=== PATIENT | female | born 1975 | race Caucasian/White ===

== ENCOUNTER 2019-04-05 21:25 | Emergency (ER) | payer MEDICAID ==
[~2019-04-05] VITALS: Ht 165.1 cm; Wt 127.0 kg
[~2019-04-05 21:25] MED LIST: HYDR1TAB PO; MOT200T PO; NO HOME MEDS
[2019-04-05 22:12] LABS: COLOR,URINE YELLOW (Yellow); GLUCOSE, URINE NEGATIVE (Neg); KETONES,URINE NEGATIVE (Neg); LEUKOCYTE ESTERASE ,URINE MODERATE (Neg); NITRITES, URINE NEGATIVE (Neg); OCCULT BLOOD,URINE TRACE-INTACT (Neg); PH,URINE 6.5 (4.8-8.0); PROTEIN,URINE NEGATIVE (Neg); UROBILINOGEN,URINE 0.2 E.U/dL (0.2-1.0)
[2019-04-05 22:18] LABS: CLARITY,URINE SLIGHTLY CLOUDY (Clear); UA COLLECTION TYPE CLN CATCH MIDSTREAM
[2019-04-05 22:22] LABS: BACTERIA,URINE 1+ /HPF (Neg); MUCUS STRANDS FEW /LPF (Neg); RBC,URINE 0-2 /HPF (0-2); SQUAMOUS EPITHELIAL CELL,UR MODERATE /LPF (FEW); WBC CLUMPS,URINE FEW /HPF (NEGATIVE); WBC,URINE 20-30 /HPF (0-4)
[2019-04-05] MEDS ORDERED: PHEN-716 PO (22:22)
[2019-04-05] MEDS ORDERED: NITR100C6 PO (22:22)
[2019-04-05 22:34] VITALS: BP 134/75
== END 2019-04-05 22:35 | disposition home or self-care (01) ==
LOC: ER 21:25
DX: N39.0 Urinary tract infection, site not specified (principal); Z98.890 Other specified postprocedural states
CPT/HCPCS: 81001; 87088; 99283

== ENCOUNTER 2019-05-05 07:17 | Inpatient (IN) | payer MEDICAID ==
[~2019-05-05] VITALS: Ht 165.1 cm; Wt 126.9 kg
[~2019-05-05 07:17] MED LIST changes: +NITR100C6 PO; +PHEN-716 PO
--- NOTE | 2019-05-05 07:35 | NUR ---
PT ROOMED TO BED 03, DR CABRAL AND PRIMARY NURSE MARISA NOTIFIED OF PT TACHYPNEA, TACHYCARDIA, AND FEBRILE
[2019-05-05] MEDS ORDERED: acetaminophen 325mg tablet PO ONE ×3 (07:40→20:50)
[2019-05-05] MEDS ORDERED: normal saline 1000ml 1,000 ML IV ONE (07:40)
[2019-05-05] MEDS ORDERED: normal saline 1000ML IV soln IVB ONE (07:40)
[2019-05-05] MEDS ORDERED: acetaminophen w/codeine (30MG) #3 tablet PO ONE (07:45)
[2019-05-05 08:23] LABS: BASOPHILS % (AUTO) 0.2 % (0-1); EOSINOPHILS % (AUTO) 0 % (0-6); HEMATOCRIT 35.1 % (35.0-45.0); LYMPHOCYTES # (AUTO) 1.5 X10'3 (1.1-4.8); LYMPHOCYTES % (AUTO) 9.4 % (21-51); MEAN CORPUSCULAR HEMOGLOBIN 28.1 PG (27.0-31.0); MEAN CORPUSCULAR HGB CONC 34.2 g/dL (33.0-36.5); MEAN CORPUSCULAR VOLUME 82.3 FL (78-98); MEAN PLATELET VOLUME 8.3 FL (7.4-10.4); MONOCYTES # (AUTO) 0.7 X10'3 (0-0.9); MONOCYTES % (AUTO) 4.3 % (2-12); NEUTROPHILS # (AUTO) 13.3 X10'3 (1.8-7.7); NEUTROPHILS % (AUTO) 86.1 % (42-75); PLATELET COUNT 245 X10'3 (140-440); RED BLOOD COUNT 4.27 X10'6 (4.20-5.60); RED CELL DISTRIBUTION WIDTH 14.9 % (11.5-14.5); WHITE BLOOD COUNT 15.4 X10'3 (4.5-11.0)
[2019-05-05 08:39] LABS: ALANINE AMINOTRANSFERASE 23 U/L (12-78); ALBUMIN 2.8 G/DL (3.4-5.0); ALBUMIN/GLOBULIN RATIO 0.6 (1.1-1.5); ALKALINE PHOSPHATASE 49 IU/L (46-116); ANION GAP 8 (8-16); ASPARTATE AMINO TRANSFERASE 34 U/L (10-37); BILIRUBIN,TOTAL 0.7 MG/DL (0.1-1.0); BLOOD UREA NITROGEN 4 MG/DL (7-18); CALCIUM 8.4 MG/DL (8.5-10.1); CHLORIDE 94 MMOL/L (99-107); CREATININE 0.99 MG/DL (0.40-0.90); GLUCOSE 132 MG/DL (70-104); SODIUM 130 MMOL/L (135-145); TOTAL CARBON DIOXIDE 27.6 MMOL/L (24-32); TOTAL PROTEIN 7.2 G/DL (6.4-8.2); eGFR 61 ML/MIN
[2019-05-05 08:41] LABS: POTASSIUM 2.6 MMOL/L (3.5-5.1)
[2019-05-05] MEDS ORDERED: POTASSIUM BICARB 20meq eff tab 20 MEQ TABLET.EFF PO SCH (08:55)
[2019-05-05] MEDS ORDERED: ondansetron/PF 4mg/2ml inj IV PRN (09:20)
[2019-05-05] MEDS ORDERED: morphine 2 MG/ML inj. syringe IV PRN ×2 (09:20)
[2019-05-05] MEDS ORDERED: HYDROcodone/acetaminophen 5mg/325mg tablet PO PRN (09:20)
[2019-05-05] MEDS ORDERED: magnesium hydroxide 30ml (MOM) UD suspension PO PRN (09:20)
[2019-05-05] MEDS ORDERED: mag hydrox/Alum hydrox/simeth 30ml oral suspension PO PRN (09:20)
[2019-05-05] MEDS ORDERED: acetaminophen 325mg tablet PO PRN (09:20)
[2019-05-05] MEDS ORDERED: ASPI-1265 PO (09:31)
[2019-05-05] MEDS ORDERED: CHLO50TA PO (09:37)
[2019-05-05] MEDS ORDERED: SIMV-42 PO (09:37)
[2019-05-05] MEDS ORDERED: MELA3TAB64 PO (09:37)
[2019-05-05] MEDS ORDERED: LISI-600 PO (09:37)
[2019-05-05] MEDS ORDERED: LUTE20CA PO (09:37)
[2019-05-05] MEDS ORDERED: POTASSIUM CL 8 MEQ (09:37)
[2019-05-05] MEDS ORDERED: TRAZ-251 PO (09:37)
[2019-05-05] MEDS ORDERED: BUPR150T8 PO (09:37)
[2019-05-05] MEDS ORDERED: POTA8TAB3 PO (09:54)
[2019-05-05 10:07] LABS: CLARITY,URINE SLIGHTLY CLOUDY (Clear); COLOR,URINE YELLOW (Yellow); GLUCOSE, URINE NEGATIVE (Neg); KETONES,URINE 15 mg/dl (Neg); LEUKOCYTE ESTERASE ,URINE NEGATIVE (Neg); NITRITES, URINE NEGATIVE (Neg); OCCULT BLOOD,URINE LARGE (Neg); PROTEIN,URINE 100 mg/dl (Neg); UROBILINOGEN,URINE 0.2 E.U/dL (0.2-1.0)
[2019-05-05 10:08] LABS: UA COLLECTION TYPE CLN CATCH MIDSTREAM
[2019-05-05 10:20] LABS: BACTERIA,URINE 3+ /HPF (Neg); MUCUS STRANDS NONE SEEN /LPF (Neg); SQUAMOUS EPITHELIAL CELL,UR MODERATE /LPF (FEW)
--- NOTE | 2019-05-05 11:50 | NUR ---
Report received from ED RNTatyana.
--- NOTE | 2019-05-05 12:15 | NUR ---
Pt arrived to room 341 from ED
[2019-05-05 12:20] VITALS: BP 129/80
[2019-05-05] MEDS ORDERED: LISI-604 PO (12:23)
[2019-05-05] MEDS ORDERED: BUPR300T86 PO (12:24)
[2019-05-05] MEDS ORDERED: SIMV-45 PO (12:25)
[2019-05-05] MEDS ORDERED: POTA8CAP20 PO (12:27)
--- NOTE | 2019-05-05 14:45 | NUR ---
Notified by television reporter HR in the 130s for a few mins. Assessed pt & HR @ 106, which is where pt normally is on HR. Pt states she was excited because her family showed up.
--- NOTE | 2019-05-05 18:30 | NUR ---
Patient in room [facility]ONG 341. I have received report from Jodie TOM and had the opportunity to ask questions and assume patient care.
--- NOTE | 2019-05-05 18:30 | NUR ---
Patient in room [facility]ONG 341. I have received report from Jodie TOM and had the opportunity to ask questions and assume patient care.
--- NOTE | 2019-05-05 18:45 | NUR ---
Problems reprioritized. Patient report given, questions answered & plan of care reviewed with NEGRO Pacheco & NEGRO Sosa.
[2019-05-05 20:00] VITALS: BP 139/70
[2019-05-05] MEDS: buPROPion SR 150mg tablet PO SCH (22:08)
[2019-05-05] MEDS ORDERED: potassium CL 10mEq/100ml bag 100 ML IV PRN (22:10)
[2019-05-05] MEDS ORDERED: magnesium Cl slow-release 64mg tablet PO PRN (22:10)
[2019-05-05] MEDS ORDERED: magnesium 4gm in 100ml NS 100 ML IV PRN (22:10)
[2019-05-05] MEDS ORDERED: magnesium 2GM in 50ml NS 50 ML IV PRN (22:10)
[2019-05-05] MEDS: potassium Cl 20 mEq SR tablet PO PRN (22:36)
[2019-05-06] VITALS: BP 105/58
[2019-05-06] MEDS: Melatonin 3mg tablet PO SCH ×2 (02:07→19:53)
[2019-05-06] MEDS: acetaminophen 325mg tablet PO PRN ×3 (02:07→17:56)
[2019-05-06] MEDS: potassium Cl 20 mEq SR tablet PO PRN ×2 (04:09→04:10)
--- NOTE | 2019-05-06 06:36 | NUR ---
Problems reprioritized. Patient report given, questions answered & plan of care reviewed with Andres TOM.
[2019-05-06 06:38] LABS: BASOPHILS % (AUTO) 0.1 % (0-1); EOSINOPHILS % (AUTO) 0 % (0-6); HEMATOCRIT 29.5 % (35.0-45.0); HEMOGLOBIN 10.2 g/dl (12.0-16.0); LYMPHOCYTES % (AUTO) 12.4 % (21-51); MEAN CORPUSCULAR HEMOGLOBIN 28.5 PG (27.0-31.0); MEAN CORPUSCULAR HGB CONC 34.5 g/dL (33.0-36.5); MEAN CORPUSCULAR VOLUME 82.6 FL (78-98); MONOCYTES # (AUTO) 0.3 X10'3 (0-0.9); MONOCYTES % (AUTO) 4.2 % (2-12); NEUTROPHILS # (AUTO) 6.4 X10'3 (1.8-7.7); NEUTROPHILS % (AUTO) 83.3 % (42-75); PLATELET COUNT 180 X10'3 (140-440); RED BLOOD COUNT 3.57 X10'6 (4.20-5.60); RED CELL DISTRIBUTION WIDTH 15.2 % (11.5-14.5); WHITE BLOOD COUNT 7.7 X10'3 (4.5-11.0)
[2019-05-06] MEDS: buPROPion SR 150mg tablet PO SCH ×2 (07:15→19:53)
[2019-05-06] MEDS: CefTRIAXone/D5W-Rocephin 1gm 50 ML IV SCH (07:16)
[2019-05-06] MEDS: potassium chloride 8mEq ER tablet PO SCH (07:16)
[2019-05-06] MEDS: aspirin 81mg tab.chew PO SCH (07:16)
[2019-05-06] MEDS: lisinopril 5mg tablet PO SCH (07:16)
[2019-05-06] MEDS: atorvastatin 20mg tablet PO SCH (07:16)
[2019-05-06] MEDS: enoxaparin 40mg/0.4ml syringe SUBCUT SCH (07:17)
[2019-05-06] MEDS: chlorthalidone 25mg tablet PO SCH (07:19)
--- NOTE | 2019-05-06 07:20 | NUR ---
Problems reprioritized. Patient report given, questions answered & plan of care reviewed with Andres TOM.
[2019-05-06 07:25] VITALS: BP 104/54
[2019-05-06] MEDS: (Lutein 20 MG) PO SCH (07:25)
[2019-05-06 07:37] LABS: ALBUMIN 2.2 G/DL (3.4-5.0); ANION GAP 10 (8-16); BLOOD UREA NITROGEN 9 MG/DL (7-18); BUN/CREATININE RATIO 10.2 (6.6-38.0); CALCIUM 7.9 MG/DL (8.5-10.1); CHLORIDE 94 MMOL/L (99-107); CREATININE 0.88 MG/DL (0.40-0.90); GLUCOSE 100 MG/DL (70-104); MAGNESIUM 1.5 MG/DL (1.5-2.4); POTASSIUM 3.5 MMOL/L (3.5-5.1); SODIUM 130 MMOL/L (135-145); TOTAL CARBON DIOXIDE 25.9 MMOL/L (24-32); eGFR 70 ML/MIN
[2019-05-06] MEDS: K and/or MAG REPLACEMENT MC SCH ×2 (08:00→20:00)
[2019-05-06] MEDS ORDERED: CefTRIAXone/D5W-Rocephin 1gm 50 ML IV SCH (08:00)
[2019-05-06] MEDS: azithromycin/NS 500mg/250ml 250 ML IV SCH (09:28)
[2019-05-06 11:00] VITALS: BP 122/59
[2019-05-06] MEDS: furosemide 20 MG/2 ML vial IV SCH (11:49)
--- NOTE | 2019-05-06 11:55 | NUR ---
patient temp is 103.3. tylenol given as ordered. cooling measure with use of cooling pad applied. dr arenas notified.
--- NOTE | 2019-05-06 13:18 | NUR ---
Patient temp recheck is 102.2. Dr Gruber notified. Ice packs placed underneath patient axillary.
[2019-05-06] MEDS ORDERED: vancomycin inj 1,000 MG in normal saline 250ml IV soln 250 ML IV ONE (14:50)
[2019-05-06] MEDS: ibuprofen tablet 400 MG TABLET PO PRN ×2 (15:41→23:22)
--- NOTE | 2019-05-06 17:17 | NUR ---
PATIENT CONTINUES TO BE FEBRILE. DR STRATTON ORDERED FOR IBUPROFEN. IBUPROFEN GIVEN ORDERED AND RECHECK OF TEMP IS 103 F ORALLY. PATIENT REFUSING TO HAVE COOLING MEASURE ICE PACK PLACED, " I CAN'T HANDLE THAT." SHE DOES AGREE TO HAVE COOLING BLANKET ON. DR STRATTON NOTIFIED AND NO NEW ORDERS RECEIVED. PATIENT SPOUSE AT [facility] AND STATES PATIENT CALLED HIM CRYING THAT SHE IS FREEZING COLD AND STAFF WILL NOT GIVE HER BLANKETS. EDUCATED PATIENT AND SPOUSE THAT HER TEMP HAS BEEN ELEVATED AND CONTINUES TO BE ELEVATED EVEN WITH MEDS SO WE DO NOT WANT HER TEMP TO CONTINUE TO CLIMB. THAT THE FEELING OF "FREEZING" IS DUE TO HER BODY ATTEMPTING TO COOL ITSELF DOWN. PATIENT DOES HAVE A SHEET FOR COMFORT. PATIENT AND SPOUSE VERBALIZED UNDERSTANDING WHY PATIENT CANNOT HAVE BLANKETS. WILL CONTINUE TO MONITOR.
--- NOTE | 2019-05-06 18:19 | NUR ---
Problems reprioritized. Patient report given, questions answered & plan of care reviewed with NEGRO Mistry.
--- NOTE | 2019-05-06 18:30 | NUR ---
Patient in room TONG 341. I have received report from FLY TOM and had the opportunity to ask questions and assume patient care.
[2019-05-06] MEDS: lactobacillus rhamnosus 10,000 MMU CELLS/CAPSULE PO SCH (19:53)
[2019-05-06 20:00] VITALS: BP 102/50
[2019-05-07] VITALS (7 sets, daily range): BP systolic 86–142; BP diastolic 47–88
--- NOTE | 2019-05-07 06:10 | NUR ---
Patient in room TONG 341. I have received report from Porsha Story RN and had the opportunity to ask questions and assume patient care.
[2019-05-07 06:12] LABS: BASOPHILS % (AUTO) 0.2 % (0-1); EOSINOPHILS % (AUTO) 0 % (0-6); HEMATOCRIT 30.1 % (35.0-45.0); HEMOGLOBIN 10.4 g/dl (12.0-16.0); LYMPHOCYTES % (AUTO) 12.7 % (21-51); MEAN CORPUSCULAR HEMOGLOBIN 28.4 PG (27.0-31.0); MEAN CORPUSCULAR HGB CONC 34.6 g/dL (33.0-36.5); MEAN CORPUSCULAR VOLUME 82.2 FL (78-98); MEAN PLATELET VOLUME 9.1 FL (7.4-10.4); MONOCYTES # (AUTO) 0.2 X10'3 (0-0.9); MONOCYTES % (AUTO) 2.3 % (2-12); NEUTROPHILS # (AUTO) 6.7 X10'3 (1.8-7.7); NEUTROPHILS % (AUTO) 84.8 % (42-75); PLATELET COUNT 185 X10'3 (140-440); RED BLOOD COUNT 3.66 X10'6 (4.20-5.60); RED CELL DISTRIBUTION WIDTH 15.1 % (11.5-14.5); WHITE BLOOD COUNT 7.9 X10'3 (4.5-11.0)
--- NOTE | 2019-05-07 06:25 | NUR ---
Problems reprioritized. Patient report given, questions answered & plan of care reviewed with SAIMA TOM.
[2019-05-07 06:28] LABS: ALBUMIN 2.3 G/DL (3.4-5.0); ANION GAP 9 (8-16); BLOOD UREA NITROGEN 11 MG/DL (7-18); BUN/CREATININE RATIO 12.6 (6.6-38.0); CHLORIDE 93 MMOL/L (99-107); CREATININE 0.87 MG/DL (0.40-0.90); GLUCOSE 90 MG/DL (70-104); MAGNESIUM 1.8 MG/DL (1.5-2.4); POTASSIUM 3.2 MMOL/L (3.5-5.1); SODIUM 129 MMOL/L (135-145); TOTAL CARBON DIOXIDE 27.3 MMOL/L (24-32); eGFR 71 ML/MIN
[2019-05-07] MEDS: lisinopril 5mg tablet PO SCH (08:00)
[2019-05-07] MEDS: (Lutein 20 MG) PO SCH (08:00)
[2019-05-07] MEDS: furosemide 20 MG/2 ML vial IV SCH (08:00)
[2019-05-07] MEDS: chlorthalidone 25mg tablet PO SCH (08:00)
[2019-05-07] MEDS: K and/or MAG REPLACEMENT MC SCH ×2 (08:00→19:33)
[2019-05-07] MEDS: CefTRIAXone/D5W-Rocephin 1gm 50 ML IV SCH (08:48)
[2019-05-07] MEDS: lactobacillus rhamnosus 10,000 MMU CELLS/CAPSULE PO SCH ×2 (08:48→19:30)
[2019-05-07] MEDS: aspirin 81mg tab.chew PO SCH (08:49)
[2019-05-07] MEDS: buPROPion SR 150mg tablet PO SCH ×2 (08:49→19:30)
[2019-05-07] MEDS: potassium chloride 8mEq ER tablet PO SCH (08:49)
[2019-05-07] MEDS: potassium Cl 20 mEq SR tablet PO PRN ×3 (08:50→17:25)
[2019-05-07] MEDS: atorvastatin 20mg tablet PO SCH (08:50)
[2019-05-07] MEDS: enoxaparin 40mg/0.4ml syringe SUBCUT SCH (08:51)
[2019-05-07] MEDS: normal saline 1000ml 1,000 ML IV SCH ×2 (08:57→18:45)
[2019-05-07] MEDS: azithromycin/NS 500mg/250ml 250 ML IV SCH (10:03)
--- NOTE | 2019-05-07 10:42 | NUR ---
Patient states clear mucous coughed up with blood in it on the evening of 05/06. The patient left the mucous in the sink from the evening of 05/06. Upon inspection 12/12 am, there was minimal blood dried up in sink.
[2019-05-07] MEDS: acetaminophen 325mg tablet PO PRN (11:56)
--- NOTE | 2019-05-07 15:06 | NUR ---
Student documentation: I have reviewed all interventions, assessments performed and documented by Luiz ADHIKARI
[2019-05-07] MEDS: ibuprofen tablet 400 MG TABLET PO PRN (17:25)
--- NOTE | 2019-05-07 18:05 | NUR ---
Patient in room TONG 341. I have received report from Daisha TOM and had the opportunity to ask questions and assume patient care.
--- NOTE | 2019-05-07 18:30 | NUR ---
Problems reprioritized. Patient report given, questions answered & plan of care reviewed with NEGRO García.
[2019-05-07] MEDS: benzonatate 100mg capsule PO PRN (19:06)
--- NOTE | 2019-05-07 19:37 | NUR ---
Patient requested that her 2100 Melatonin dose be given closer to 2300 as this would reflect her normal sleeping pattern at home.
[2019-05-07] MEDS: Melatonin 3mg tablet PO SCH (23:26)
[2019-05-08] VITALS: BP 115/63
[2019-05-08] MEDS: normal saline 1000ml 1,000 ML IV SCH ×2 (05:00→14:45)
[2019-05-08 05:02] LABS: BASOPHILS % (AUTO) 0.1 % (0-1); EOSINOPHILS % (AUTO) 0 % (0-6); HEMATOCRIT 28.9 % (35.0-45.0); HEMOGLOBIN 9.8 g/dl (12.0-16.0); LYMPHOCYTES # (AUTO) 1.4 X10'3 (1.1-4.8); LYMPHOCYTES % (AUTO) 21.5 % (21-51); MEAN CORPUSCULAR HEMOGLOBIN 28.3 PG (27.0-31.0); MEAN CORPUSCULAR HGB CONC 34.1 g/dL (33.0-36.5); MEAN PLATELET VOLUME 9.2 FL (7.4-10.4); MONOCYTES # (AUTO) 0.3 X10'3 (0-0.9); MONOCYTES % (AUTO) 3.9 % (2-12); NEUTROPHILS # (AUTO) 4.9 X10'3 (1.8-7.7); NEUTROPHILS % (AUTO) 74.5 % (42-75); PLATELET COUNT 188 X10'3 (140-440); RED BLOOD COUNT 3.48 X10'6 (4.20-5.60); RED CELL DISTRIBUTION WIDTH 15.2 % (11.5-14.5); WHITE BLOOD COUNT 6.6 X10'3 (4.5-11.0)
[2019-05-08 05:25] LABS: ALBUMIN 2.1 G/DL (3.4-5.0); ANION GAP 8 (8-16); BLOOD UREA NITROGEN 7 MG/DL (7-18); BUN/CREATININE RATIO 8.3 (6.6-38.0); CALCIUM 7.8 MG/DL (8.5-10.1); CHLORIDE 97 MMOL/L (99-107); CREATININE 0.84 MG/DL (0.40-0.90); GLUCOSE 95 MG/DL (70-104); MAGNESIUM 1.7 MG/DL (1.5-2.4); POTASSIUM 3.4 MMOL/L (3.5-5.1); SODIUM 132 MMOL/L (135-145); TOTAL CARBON DIOXIDE 26.8 MMOL/L (24-32); eGFR 74 ML/MIN
--- NOTE | 2019-05-08 06:20 | NUR ---
Patient in room TONG 341. I have received report from Ricky TOM and had the opportunity to ask questions and assume patient care.
--- NOTE | 2019-05-08 06:32 | NUR ---
Problems reprioritized. Patient report given, questions answered & plan of care reviewed with Jacy TOM.
[2019-05-08] MEDS: potassium chloride 8mEq ER tablet PO SCH (07:27)
[2019-05-08] MEDS: lisinopril 5mg tablet PO SCH (07:27)
[2019-05-08] MEDS: chlorthalidone 25mg tablet PO SCH (07:27)
[2019-05-08] MEDS: benzonatate 100mg capsule PO PRN (07:27)
[2019-05-08] MEDS: potassium Cl 20 mEq SR tablet PO PRN ×3 (07:27→17:37)
[2019-05-08] MEDS: atorvastatin 20mg tablet PO SCH (07:27)
[2019-05-08] MEDS: aspirin 81mg tab.chew PO SCH (07:27)
[2019-05-08] MEDS: lactobacillus rhamnosus 10,000 MMU CELLS/CAPSULE PO SCH ×2 (07:28→21:29)
[2019-05-08] MEDS: enoxaparin 40mg/0.4ml syringe SUBCUT SCH (07:28)
[2019-05-08] MEDS: buPROPion SR 150mg tablet PO SCH ×2 (07:28→21:29)
[2019-05-08] MEDS: CefTRIAXone/D5W-Rocephin 1gm 50 ML IV SCH (07:28)
[2019-05-08] MEDS: K and/or MAG REPLACEMENT MC SCH ×2 (07:29→20:00)
[2019-05-08 07:30] VITALS: BP 121/68
[2019-05-08] MEDS: ibuprofen tablet 400 MG TABLET PO PRN (07:31)
[2019-05-08] MEDS: azithromycin/NS 500mg/250ml 250 ML IV SCH (08:17)
[2019-05-08] MEDS ORDERED: VANCOMYCIN LEVEL IJ ONE (08:30)
[2019-05-08 11:00] VITALS: BP 106/54
--- NOTE | 2019-05-08 12:07 | NUR ---
Paged hospitalist, "Jacy [phone]- FYI [address] chest results available."
--- NOTE | 2019-05-08 13:22 | NUR ---
Paged hospitalist, "Jacy #[phone] requesting regular diet. Please let me know." Waiting on follow-up.
--- NOTE | 2019-05-08 17:40 | NUR ---
Noted a bug that the patient identified as a cockroach, this nurse tried to catch it in a cup. Called for a sticky floor tile.
[2019-05-08 18:00] VITALS: BP 127/77
--- NOTE | 2019-05-08 18:05 | NUR ---
Patient in room TONG 341. I have received report from Jacy TOM and had the opportunity to ask questions and assume patient care.
--- NOTE | 2019-05-08 18:12 | NUR ---
Problems reprioritized. Patient report given, questions answered & plan of care reviewed with Ricky TOM.
[2019-05-08] MEDS: Melatonin 3mg tablet PO SCH (21:00)
[2019-05-09] VITALS: BP 114/57
[2019-05-09] MEDS: normal saline 1000ml 1,000 ML IV SCH ×3 (01:12→14:41)
[2019-05-09 05:24] LABS: BASOPHILS % (AUTO) 0.1 % (0-1); EOSINOPHILS % (AUTO) 0.2 % (0-6); HEMATOCRIT 28.2 % (35.0-45.0); HEMOGLOBIN 9.7 g/dl (12.0-16.0); LYMPHOCYTES # (AUTO) 1.9 X10'3 (1.1-4.8); MEAN CORPUSCULAR HEMOGLOBIN 28.6 PG (27.0-31.0); MEAN CORPUSCULAR HGB CONC 34.5 g/dL (33.0-36.5); MEAN CORPUSCULAR VOLUME 83.1 FL (78-98); MEAN PLATELET VOLUME 9.1 FL (7.4-10.4); MONOCYTES # (AUTO) 0.6 X10'3 (0-0.9); MONOCYTES % (AUTO) 9.2 % (2-12); NEUTROPHILS # (AUTO) 4.4 X10'3 (1.8-7.7); NEUTROPHILS % (AUTO) 63.5 % (42-75); PLATELET COUNT 228 X10'3 (140-440); RED BLOOD COUNT 3.39 X10'6 (4.20-5.60); RED CELL DISTRIBUTION WIDTH 15.2 % (11.5-14.5); WHITE BLOOD COUNT 6.9 X10'3 (4.5-11.0)
[2019-05-09 05:37] LABS: ANION GAP 9 (8-16); BLOOD UREA NITROGEN 4 MG/DL (7-18); BUN/CREATININE RATIO 5.4 (6.6-38.0); CALCIUM 8.2 MG/DL (8.5-10.1); CHLORIDE 98 MMOL/L (99-107); CREATININE 0.74 MG/DL (0.40-0.90); GLUCOSE 89 MG/DL (70-104); MAGNESIUM 1.8 MG/DL (1.5-2.4); POTASSIUM 3.6 MMOL/L (3.5-5.1); SODIUM 134 MMOL/L (135-145); TOTAL CARBON DIOXIDE 26.8 MMOL/L (24-32); eGFR 86 ML/MIN
--- NOTE | 2019-05-09 06:30 | NUR ---
Problems reprioritized. Patient report given, questions answered & plan of care reviewed with Emeka RN.
--- NOTE | 2019-05-09 06:30 | NUR ---
Patient in room TONG 341. I have received report from Ricky TOM and had the opportunity to ask questions and assume patient care.
[2019-05-09] MEDS: K and/or MAG REPLACEMENT MC SCH ×2 (08:00→20:00)
[2019-05-09] MEDS ORDERED: azithromycin 250mg tablet PO SCH (08:00)
[2019-05-09 08:06] VITALS: BP 129/99
[2019-05-09 08:09] LABS: C DIFF ANTIGEN NEGATIVE (NEGATIVE); C DIFF SPECIMEN=DIARRHEA? ACCEPTABLE; C DIFFICILE TOXINS A&B NEGATIVE (Neg)
[2019-05-09] MEDS: lisinopril 5mg tablet PO SCH (08:27)
[2019-05-09] MEDS: atorvastatin 20mg tablet PO SCH (08:27)
[2019-05-09] MEDS: buPROPion SR 150mg tablet PO SCH ×2 (08:28→20:55)
[2019-05-09] MEDS: lactobacillus rhamnosus 10,000 MMU CELLS/CAPSULE PO SCH ×2 (08:28→20:55)
[2019-05-09] MEDS: aspirin 81mg tab.chew PO SCH (08:28)
[2019-05-09] MEDS: chlorthalidone 25mg tablet PO SCH (08:29)
[2019-05-09] MEDS: potassium chloride 8mEq ER tablet PO SCH (08:29)
[2019-05-09] MEDS: CefTRIAXone/D5W-Rocephin 1gm 50 ML IV SCH (08:29)
[2019-05-09] MEDS: enoxaparin 40mg/0.4ml syringe SUBCUT SCH (08:34)
[2019-05-09] MEDS: predniSONE 20 mg tablet PO SCH (10:11)
[2019-05-09 11:00] VITALS: BP 134/82
[2019-05-09 18:00] VITALS: BP 127/73
--- NOTE | 2019-05-09 18:22 | NUR ---
Problems reprioritized. Patient report given, questions answered & plan of care reviewed with Ricky TOM.
[2019-05-09] MEDS: Melatonin 3mg tablet PO SCH (21:00)
[2019-05-10] VITALS: BP 139/83
[2019-05-10 06:28] LABS: BASOPHILS % (AUTO) 0.2 % (0-1); EOSINOPHILS % (AUTO) 0.3 % (0-6); HEMATOCRIT 30.5 % (35.0-45.0); HEMOGLOBIN 10.6 g/dl (12.0-16.0); LYMPHOCYTES # (AUTO) 2.1 X10'3 (1.1-4.8); LYMPHOCYTES % (AUTO) 26.8 % (21-51); MEAN CORPUSCULAR HEMOGLOBIN 28.2 PG (27.0-31.0); MEAN CORPUSCULAR HGB CONC 34.7 g/dL (33.0-36.5); MEAN CORPUSCULAR VOLUME 81.4 FL (78-98); MEAN PLATELET VOLUME 8.7 FL (7.4-10.4); MONOCYTES # (AUTO) 0.8 X10'3 (0-0.9); MONOCYTES % (AUTO) 10.9 % (2-12); NEUTROPHILS # (AUTO) 4.7 X10'3 (1.8-7.7); NEUTROPHILS % (AUTO) 61.8 % (42-75); PLATELET COUNT 321 X10'3 (140-440); RED BLOOD COUNT 3.74 X10'6 (4.20-5.60); RED CELL DISTRIBUTION WIDTH 15.6 % (11.5-14.5); WHITE BLOOD COUNT 7.7 X10'3 (4.5-11.0)
[2019-05-10 06:30] LABS: ALBUMIN 2.1 G/DL (3.4-5.0); ANION GAP 9 (8-16); BLOOD UREA NITROGEN 6 MG/DL (7-18); BUN/CREATININE RATIO 9.5 (6.6-38.0); CALCIUM 8.8 MG/DL (8.5-10.1); CHLORIDE 100 MMOL/L (99-107); CREATININE 0.63 MG/DL (0.40-0.90); GLUCOSE 98 MG/DL (70-104); MAGNESIUM 1.9 MG/DL (1.5-2.4); POTASSIUM 3.3 MMOL/L (3.5-5.1); SODIUM 137 MMOL/L (135-145); TOTAL CARBON DIOXIDE 28.2 MMOL/L (24-32); eGFR > 90 ML/MIN
--- NOTE | 2019-05-10 06:32 | NUR ---
Patient in room TONG 341. I have received report from ROX TOM and had the opportunity to ask questions and assume patient care.
[2019-05-10 06:44] LABS: RHEUM FACTOR QUAL REFLEX TITER NEGATIVE (Neg)
[2019-05-10 07:23] VITALS: BP 121/69
[2019-05-10] MEDS: K and/or MAG REPLACEMENT MC SCH (08:00)
[2019-05-10] MEDS: aspirin 81mg tab.chew PO SCH (08:09)
[2019-05-10] MEDS: atorvastatin 20mg tablet PO SCH (08:09)
[2019-05-10] MEDS: lactobacillus rhamnosus 10,000 MMU CELLS/CAPSULE PO SCH (08:09)
[2019-05-10] MEDS: potassium chloride 8mEq ER tablet PO SCH (08:10)
[2019-05-10] MEDS: buPROPion SR 150mg tablet PO SCH (08:10)
[2019-05-10] MEDS: lisinopril 5mg tablet PO SCH (08:10)
[2019-05-10] MEDS: chlorthalidone 25mg tablet PO SCH (08:10)
[2019-05-10] MEDS: predniSONE 20 mg tablet PO SCH (08:11)
[2019-05-10] MEDS: enoxaparin 40mg/0.4ml syringe SUBCUT SCH (08:12)
[2019-05-10] MEDS ORDERED: PRED20TA PO (13:39)
[2019-05-10] MEDS ORDERED: ESOM40CA49 PO (13:39)
--- NOTE | 2019-05-10 14:50 | NUR ---
PATIENT DISCHARGED WITH FAMILY IN THE ROOM. PATIENT WAS MADE FAMILIAR WITH HER NEW MEDICATION REGIME AND EXPRESSED VERBAL UNDERSTANDING. PATIENT STATED SHE HAD ALL OF HER ITEMS AT THIS TIME TIME. PATIENT AND FAMILY AWARE MEDICATION WAS BEING SENT TO THE PHARMACY [facility] OFF [address]. PATIENT TAKEN DOWN TO THE LOBBY IN WHEELCHAIR AND WAS TRANSPORTED HOME VIA PRIVATE VEHICLE AT THIS TIME.
--- NOTE | 2019-05-10 14:50 | NUR ---
PATIENT IV TAKEN OUT AT THIS TIME AND SITE SHOWED MINIMAL BLEEDING AND CANULA WAS WHOLE AND INTACT.
[2019-05-12 21:58] LABS: ANTINUCLEAR ANTIBODIES Negative (Negative)
[2019-05-14 15:58] LABS: ANTIMYELOPEROXIDASE ABS <9.0 U/mL (0.0-9.0); ANTIPROTEINASE 3 ABS <3.5 U/mL (0.0-3.5)
== END 2019-05-10 14:42 | disposition home or self-care (01) | DRG 134 ==
LOC: ER 07:18 → ED HOLD 09:17 → SUR 3N 12:17
PROVIDERS: ADMIT Internal Medicine; ATTEND Internal Medicine
DX: I26.09 Other pulmonary embolism with acute cor pulmonale (principal); J96.90 Respiratory failure, unspecified, unspecified whether with hypoxia or hypercapnia; E43 Unspecified severe protein-calorie malnutrition; I50.9 Heart failure, unspecified; E66.01 Morbid (severe) obesity due to excess calories; E87.1 Hypo-osmolality and hyponatremia; E78.5 Hyperlipidemia, unspecified; E87.6 Hypokalemia; F32.9 Major depressive disorder, single episode, unspecified; D63.8 Anemia in other chronic diseases classified elsewhere; J91.8 Pleural effusion in other conditions classified elsewhere; F17.210 Nicotine dependence, cigarettes, uncomplicated; Z68.42 Body mass index [BMI] 45.0-49.9, adult; Z79.899 Other long term (current) drug therapy; Z79.82 Long term (current) use of aspirin
CPT/HCPCS: 36415; 71045; 71250; 80048; 80053; 80202; 81001; 83605; 83735; 83880; 84132; 84145; 84443; 84484; 85025; 85651; 86021; 86038; 86430; 87040; 87081; 87088; 87324; 87449; 87502; 87503; 93005; 93306; 94760; 96361; 96365; 99285; G0378; J0456; J0696; J1650; J1940; J3370; J7030; J7050; J7512

== ENCOUNTER 2020-01-10 21:34 | Emergency (ER) | payer MEDICAID ==
[~2020-01-10] VITALS: Ht 165.1 cm; Wt 127.3 kg
[~2020-01-10 21:34] MED LIST changes: +ASPI-1265 PO; +BUPR300T86 PO; +CHLO50TA PO; +ESOM40CA49 PO; -HYDR1TAB PO; +LISI-604 PO; +LUTE20CA PO; +MELA3TAB39 PO; -MOT200T PO; -NITR100C6 PO; -NO HOME MEDS; -PHEN-716 PO; +POTA8CAP20 PO; +PRED20TA PO; +SIMV-45 PO
[2020-01-10 21:45] VITALS: BP 161/87
[2020-01-10] MEDS ORDERED: TETanus/Pertussis (Acell)/Diphther VAC/PF (Tdap-Adult) 0.5ml syringe IMVAC ONE (22:30)
[2020-01-10] MEDS ORDERED: LIDOcaine 1% W/epiNEPHrine 1:200,000 10ml vial IJ ONE (22:40)
[2020-01-10] MEDS ORDERED: sulfamethoxazole/trimethoprim DS (800/160mg) tablet PO ONE (23:05)
[2020-01-10] MEDS ORDERED: cephalexin 250mg capsule PO ONE (23:05)
[2020-01-10] MEDS ORDERED: SULF1TAB49 PO (23:10)
[2020-01-10] MEDS ORDERED: CEPH500C5 PO (23:10)
== END 2020-01-10 23:24 | disposition home or self-care (01) ==
LOC: ER 21:35
DX: L02.414 Cutaneous abscess of left upper limb (principal); Z72.89 Other problems related to lifestyle; Z98.890 Other specified postprocedural states; Z79.82 Long term (current) use of aspirin
CPT/HCPCS: 10060; 90715; 99283

== ENCOUNTER 2021-09-02 22:21 | Emergency (ER) | payer MEDICAID ==
[~2021-09-02] VITALS: Ht 165.1 cm; Wt 134.6 kg
[~2021-09-02 22:21] MED LIST changes: -LISI-604 PO; +LISI5TAB22 PO
[2021-09-02 22:22] VITALS: BP 188/101
[2021-09-02 23:08] LABS: CLARITY,URINE SLIGHTLY CLOUDY (Clear); COLOR,URINE ORANGE (Yellow)
[2021-09-02 23:14] LABS: UA COLLECTION TYPE CLN CATCH MIDSTREAM
[2021-09-02 23:15] LABS: BACTERIA,URINE NONE SEEN /HPF (Neg); RBC,URINE 0-2 /HPF (0-2); SQUAMOUS EPITHELIAL CELL,UR MODERATE /LPF (FEW)
[2021-09-02] MEDS ORDERED: SULF1TAB49 PO ×2 (23:25→23:33)
[2021-09-02] MEDS ORDERED: sulfamethoxazole/trimethoprim DS (800/160mg) tablet PO ONE (23:25)
== END 2021-09-02 23:52 | disposition home or self-care (01) ==
LOC: ER 22:21
DX: R30.0 Dysuria (principal); R30.9 Painful micturition, unspecified; R31.9 Hematuria, unspecified; R11.2 Nausea with vomiting, unspecified; Z87.440 Personal history of urinary (tract) infections; Z98.890 Other specified postprocedural states; Z72.89 Other problems related to lifestyle; Z79.82 Long term (current) use of aspirin; Z79.899 Other long term (current) drug therapy
CPT/HCPCS: 81001; 87088; 99283

== ENCOUNTER 2021-12-30 17:40 | Emergency (ER) | payer MEDICAID ==
[~2021-12-30] VITALS: Ht 165.1 cm; Wt 138.0 kg
[2021-12-30 17:55] VITALS: BP 155/86
[2021-12-30 18:22] LABS: URINE HCG NEGATIVE (NEG)
[2021-12-30 18:26] LABS: CLARITY,URINE CLEAR (Clear); UA COLLECTION TYPE CLN CATCH MIDSTREAM
[2021-12-30 18:27] LABS: COLOR,URINE ORANGE (Yellow)
[2021-12-30 18:33] LABS: BACTERIA,URINE 2+ /HPF (Neg); MUCUS STRANDS FEW /LPF (Neg); RBC,URINE 0-2 /HPF (0-2); SQUAMOUS EPITHELIAL CELL,UR FEW /LPF (FEW); WBC,URINE 30-50 /HPF (0-4)
[2021-12-30] MEDS ORDERED: CEPH500C82 PO (19:13)
[2021-12-30] MEDS ORDERED: cephalexin 500mg capsule PO ONE (19:15)
== END 2021-12-30 19:33 | disposition home or self-care (01) ==
LOC: ER 17:54
DX: N39.0 Urinary tract infection, site not specified (principal); Z98.890 Other specified postprocedural states; Z79.899 Other long term (current) drug therapy; Z79.82 Long term (current) use of aspirin; Z79.1 Long term (current) use of non-steroidal anti-inflammatories (NSAID)
CPT/HCPCS: 81001; 81025; 87077; 87088; 87186; 99283

== ENCOUNTER 2022-05-25 23:46 | Emergency (ER) | payer MEDICAID ==
[~2022-05-25] VITALS: Ht 167.6 cm; Wt 133.4 kg
[2022-05-25 23:56] VITALS: BP 169/89
[2022-05-26 01:05] LABS: COLOR,URINE STRAW (Yellow); GLUCOSE, URINE NEGATIVE (Neg); KETONES,URINE NEGATIVE (Neg); LEUKOCYTE ESTERASE ,URINE MODERATE (Neg); NITRITES, URINE NEGATIVE (Neg); OCCULT BLOOD,URINE SMALL (Neg); PH,URINE 6.5 (4.8-8.0); PROTEIN,URINE NEGATIVE (Neg); UROBILINOGEN,URINE 0.2 E.U/dL (0.2-1.0)
[2022-05-26 01:14] LABS: CLARITY,URINE SLIGHTLY CLOUDY (Clear); UA COLLECTION TYPE CLN CATCH MIDSTREAM
[2022-05-26 01:15] LABS: BACTERIA,URINE FEW /HPF (Neg); RBC,URINE 0-2 /HPF (0-2); SQUAMOUS EPITHELIAL CELL,UR FEW /LPF (FEW)
[2022-05-26] MEDS ORDERED: sulfamethoxazole/trimethoprim DS (800/160mg) tablet PO ONE (03:55)
[2022-05-26] MEDS ORDERED: SULF1TAB49 PO ×3 (03:56→15:07)
== END 2022-05-26 04:23 | disposition home or self-care (01) ==
LOC: ER 23:47
DX: N39.0 Urinary tract infection, site not specified (principal); F17.200 Nicotine dependence, unspecified, uncomplicated
CPT/HCPCS: 71045; 81001; 87088; 93005; 99285

== ENCOUNTER 2023-06-26 21:14 | Emergency (ER) | payer MEDICAID ==
[~2023-06-26] VITALS: Ht 165.1 cm; Wt 138.2 kg
[~2023-06-26 21:14] MED LIST changes: +SULF1TAB49 PO
[2023-06-26 21:20] VITALS: TEMP 98.1
[2023-06-26] MEDS ORDERED: cloNIDine 0.1 mg tablet PO ONE (21:30)
[2023-06-26 22:37] LABS: BILIRUBIN,URINE NEGATIVE (Neg); CLARITY,URINE CLOUDY (Clear); COLOR,URINE YELLOW (Yellow); GLUCOSE, URINE NEGATIVE (Neg); KETONES,URINE NEGATIVE (Neg); LEUKOCYTE ESTERASE ,URINE SMALL (Neg); OCCULT BLOOD,URINE SMALL (Neg); PROTEIN,URINE >=300 mg/dl (Neg); UROBILINOGEN,URINE 0.2 E.U/dL (0.2-1.0)
[2023-06-26 22:40] LABS: NITRITES, URINE NEGATIVE (Neg); UA COLLECTION TYPE CLN CATCH MIDSTREAM
[2023-06-26 22:49] LABS: MUCUS STRANDS NONE SEEN /LPF (Neg); SQUAMOUS EPITHELIAL CELL,UR MODERATE /LPF (FEW); WBC,URINE TNTC /HPF (0-4)
[2023-06-26 22:52] LABS: WBC CLUMPS,URINE MODERATE /HPF (NEGATIVE)
[2023-06-26 22:54] LABS: BACTERIA,URINE 3+ /HPF (Neg)
[2023-06-27] MEDS ORDERED: phenazopyridine 100mg tablet PO ONE (06:10)
[2023-06-27] MEDS ORDERED: sulfamethoxazole/trimethoprim DS (800/160mg) tablet PO ONE (06:10)
[2023-06-27 06:36] LABS: URINE HCG NEGATIVE (NEG)
[2023-06-27] MEDS ORDERED: SULF1TAB45 PO (07:32)
[2023-06-27] MEDS ORDERED: PHEN-824 PO (07:33)
[2023-06-27 08:06] VITALS: BP 167/83; PULSE 70; RESP 18; O2SAT 96
== END 2023-06-27 08:07 | disposition home or self-care (01) ==
LOC: ER 21:15
DX: N39.0 Urinary tract infection, site not specified (principal); E11.9 Type 2 diabetes mellitus without complications; Z79.899 Other long term (current) drug therapy; Z79.82 Long term (current) use of aspirin; Z79.2 Long term (current) use of antibiotics
CPT/HCPCS: 81001; 81025; 87088; 99284

== ENCOUNTER 2023-11-29 19:17 | Emergency (ER) | payer MEDICAID ==
[~2023-11-29] VITALS: Ht 165.1 cm; Wt 138.5 kg
[~2023-11-29 19:17] MED LIST changes: +BUPR-564 PO; -BUPR300T86 PO; +PHEN-824 PO
[2023-11-29 21:53] LABS: BILIRUBIN,URINE NEGATIVE (Neg); CLARITY,URINE CLOUDY (Clear); COLOR,URINE YELLOW (Yellow); GLUCOSE, URINE NEGATIVE (Neg); KETONES,URINE NEGATIVE (Neg); LEUKOCYTE ESTERASE ,URINE LARGE (Neg); NITRITES, URINE POSITIVE (Neg); OCCULT BLOOD,URINE MODERATE (Neg); PROTEIN,URINE TRACE mg/dl (Neg); UROBILINOGEN,URINE 0.2 E.U/dL (0.2-1.0)
[2023-11-29 21:56] LABS: UA COLLECTION TYPE CLN CATCH MIDSTREAM
[2023-11-29 21:57] LABS: BACTERIA,URINE 1+ /HPF (Neg); MUCUS STRANDS FEW /LPF (Neg); SQUAMOUS EPITHELIAL CELL,UR MODERATE /LPF (FEW); WBC,URINE TNTC /HPF (0-4)
[2023-11-29] MEDS: polyethylene glycol 3350 17gm powd pack PO SCH (22:01)
[2023-11-29 22:30] VITALS: PULSE 85; RESP 22; TEMP 98.4
[2023-11-30 00:13] LABS: MEAN CORPUSCULAR HGB CONC 33.1 g/dL (33.0-36.5)
[2023-11-30 00:16] LABS: BASOPHILS # (AUTO) 0.1 X10'3 (0-0.2); BASOPHILS % (AUTO) 0.6 % (0-1); EOSINOPHILS # (AUTO) 0.1 X10'3 (0-0.9); EOSINOPHILS % (AUTO) 0.9 % (0-6); HEMATOCRIT 38.3 % (35.0-45.0); HEMOGLOBIN 12.7 g/dl (12.0-16.0); LYMPHOCYTES # (AUTO) 3.8 X10'3 (1.1-4.8); LYMPHOCYTES % (AUTO) 27.7 % (21-51); MEAN CORPUSCULAR HEMOGLOBIN 26.7 PG (27.0-31.0); MEAN CORPUSCULAR VOLUME 80.7 FL (78-98); MEAN PLATELET VOLUME 8.1 FL (7.4-10.4); MONOCYTES # (AUTO) 0.7 X10'3 (0-0.9); MONOCYTES % (AUTO) 5.1 % (2-12); NEUTROPHILS # (AUTO) 9.1 X10'3 (1.8-7.7); NEUTROPHILS % (AUTO) 65.7 % (42-75); PLATELET COUNT 343 X10'3 (140-440); RED BLOOD COUNT 4.74 X10'6 (4.20-5.60); RED CELL DISTRIBUTION WIDTH 14.7 % (11.5-14.5); WHITE BLOOD COUNT 13.9 X10'3 (4.5-11.0)
[2023-11-30 00:21] LABS: ALBUMIN 3.1 G/DL (3.4-5.0); ANION GAP 8 (8-16); BLOOD UREA NITROGEN 5 MG/DL (7-18); BUN/CREATININE RATIO 6.3 (10.0-20.0); CALCIUM 8.9 MG/DL (8.5-10.1); CHLORIDE 101 MMOL/L (99-107); CREATININE 0.79 MG/DL (0.40-0.90); GLUCOSE 95 MG/DL (70-104); POTASSIUM 3.4 MMOL/L (3.5-5.1); SODIUM 138 MMOL/L (135-145); TOTAL CARBON DIOXIDE 28.7 MMOL/L (24-32); eCRCL 78 ML/MIN; eGFR 78 ML/MIN
[2023-11-30] MEDS: CefTRIAXone/D5W-Rocephin 1gm 50 ML IV ONE (01:06)
[2023-11-30] MEDS ORDERED: CEPH-585 PO (01:37)
== END 2023-11-30 02:20 | disposition home or self-care (01) ==
LOC: ER 19:17
DX: N39.0 Urinary tract infection, site not specified (principal); K59.00 Constipation, unspecified; I10 Essential (primary) hypertension; E11.9 Type 2 diabetes mellitus without complications; F17.200 Nicotine dependence, unspecified, uncomplicated; Z79.82 Long term (current) use of aspirin; Z79.899 Other long term (current) drug therapy; Z79.2 Long term (current) use of antibiotics
CPT/HCPCS: 36415; 80048; 81001; 85025; 87088; 93005; 96365; 99284; J0696